=== PATIENT | male | born 1975 | race Caucasian/White ===

== ENCOUNTER 2019-08-13 22:14 | Emergency (ER) | payer OTHER, SELFPAY ==
--- NOTE | 2019-08-13 22:19 | ED_ITS ---
Entered by Lakisha Quintana, acting as scribe for HPI - Abdominal Pain General: Chief Complaint: Abdominal Pain Stated Complaint: abd pain Time Seen by Provider: 08/13/19 22:19 Source: patient Mode of arrival: ambulatory Limitations: no limitations History of Present Illness: HPI narrative: 44 yo m came to the er pov for abd pain. Onset was today. Pt states that he has epigastric pain that will not go away. Pt said that the pain started just prior to arrival. Pt said that he is now not in any pain at this time. Denies any hematochezia melena hematemesis cough emesis denies dysuria urgency or frequency. No chest pain or shortness of breath. 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) Pain Consistency: constant Location: Epigastric Severity: mild Quality: stabbing Radiation: none Migration to: no migration Exacerbating factors: nothing Relieving factors: nothing Associated Symptoms: Reports no associated symptoms and nausea; Denies belching, bloating, chills, coffee ground emesis, constipation, GI cramping, diarrhea, dysuria, fever(s), heartburn, hematochezia, hematemesis and vomiting Related Data: Patient : No Review of Systems General: Reports: other (negative unless marked ) Const: Denies: fever, chills, body aches, change in appetite, fatigue or malaise ENMT: Denies: throat pain, ear pain, nasal discharge or nasal congestion Card: Denies: chest pain, edema, shortness of breath on exertion or shortness of breath when lying down Resp: Denies: shortness of breath, productive cough or non-productive cough GI: Reports: abdominal pain and nausea; Denies: vomiting, vomiting blood, coffee grounds in vomit, heartburn/indigestion, diarrhea, constipation, bloating, cramping, belching, blood in stool or white/light colored stool : Denies: flank pain, painful urination, urinary frequency or urinary urgency Skin/Breast: Denies: rash or itching PFS ED PFSH: Medical History No pertinent past medical history Surgical History No pertinent past surgical history Social History Smoking and tobacco status: never smoked Alcohol intake: never Physical Exam Const: COMMON NORMALS: average body habitus, oriented x3 and alert GENERAL APPEARANCE: cooperative, comfortable, well kempt and well developed NUTRITIONAL APPEARANCE: obese ORIENTATION/CONSCIOUSNESS: Yes awake, Yes oriented to person and Yes oriented to place HENMT: COMMON NORMALS: normocephalic, head/scalp atraumatic, EAC's normal, TM's normal bilaterally, external nose normal, moist oral mucous membranes and oropharynx normal HEAD & SCALP: normocephalic and atraumatic NOSE: external nose normal EXTERNAL AUDITORY CANAL: EAC's normal TYMPANIC MEMBRANE: TM's normal bilaterally MOUTH: oral and palatal mucosa normal, lip normal and tongue normal THROAT: posterior oropharynx normal and tonsils normal Eye: COMMON NORMALS: PERRL, EOMs intact bilaterally, conjunctivae normal and no scleral icterus CONJUNCTIVA: Yes conjunctivae normal PUPIL: Yes PERRL Neck/C-Spine: COMMON NORMALS: full ROM, no lymphadenopathy, supple, no meningeal signs and thyroid normal THYROID: thyroid normal and asymmetrical Lymph: LYMPHATIC: no lymphadenopathy noted Resp: COMMON NORMALS: normal respiratory effort, no retractions, no use of accessory muscles and clear to auscultation bilaterally AUSCULTATION: clear to auscultation bilaterally Cardio: COMMON NORMALS: regular rate and regular rhythm RATE: regular rate RHYTHM: regular rhythm HEART SOUNDS: no murmurs GI: COMMON NORMALS: normal to inspection, nondistended, normoactive bowel sounds, soft to palpation and no hepatosplenomegaly PALPATION: Yes soft and Yes no hepatosplenomegaly : COMMON NORMALS: Yes no CVA tenderness BLADDER/KIDNEY EXAM: Yes no CVA tenderness Back/Pelvis: COMMON NORMALS: no CVA tenderness LUMBAR SPINE/LOWER BACK: Yes normal to inspection Extremity: COMMON NORMALS: no clubbing, cyanosis or edema, no calf tenderness and no pedal edema Neuro: COMMON NORMALS: oriented x3 SENSORIUM/ORIENTATION: Yes alert, Yes oriented to person and Yes oriented to place MENINGEAL SIGNS: Yes no meningeal signs Psych: APPEARANCE: Yes well kempt Skin: COMMON NORMALS: no rashes or lesions noted and skin turgor normal GENERAL SKIN EXAM: no rashes or lesions noted and turgor normal Course ED course: Reviewed findings with the patient. We will go ahead and discharge him home with Jorge L WOLFN follow-up with primary care doctor return if worsens. There is some elevation of his transaminases but no elevation of the T bili or alk phos. There is a little sludge read on his gallbladder ultrasound but I do not believe that the cause of his abdominal pain would continue the PPI she has persistent problems may need to look at getting further evaluation could an EGD and/or HIDA scan Vital Signs: Vital signs: Vital Signs Temperature 97.8 F 08/13/19 22:23 Pulse Rate 94 08/13/19 23:42 Respiratory Rate 16 08/13/19 23:42 Blood Pressure 138/89 08/13/19 23:42 Pulse Oximetry 98 08/13/19 23:42 MDM - Abdominal Pain Lab Data: Attestation: I reviewed the patient's lab results. Labs: Lab Results 08/13/19 08/13/19 08/13/19 Range/Units 22:36 22:36 22:40 WBC 8.8 (4.0-10.0) 10^3/ uL RBC 5.27 (4.1-5.3) 10^6/u L Hgb 15.7 (11.7-16.6) g/dL Hct 46.9 (42.0-52.0) % MCV 89.0 (80-94) fL MCH 29.8 (28.0-34.0) pg MCHC 33.5 (30.0-36.0) g/dL RDW 12.5 (12.1-15.1) % Plt Count 365 (130-400) 10^3/c mm MPV 9.0 (7.4-10.4) fL Neut % (Auto) 46.3 % Lymph % (Auto) 41.5 % [place] % (Auto) 7.8 % Eos % (Auto) 3.4 % Baso % (Auto) 0.7 % Neut # (Auto) 4.1 (1.8-7.7) 10^3/u L Lymph # (Auto) 3.6 (0.8-4.8) 10^3/u L [place] # (Auto) 0.7 (0.2-0.9) 10^3/u L Eos # (Auto) 0.3 (0.0-0.8) 10^3/u L Baso # (Auto) 0.1 (0.0-0.1) 10^3/u L Nucleated RBC % (a uto) 0 % Nucleated RBCs # 0.0 /100WBC Sodium 143 (136-145) mmol/L Potassium 3.9 (3.5-5.1) mmol/L Chloride 105 (98-107) mmol/L Carbon Dioxide 33 H (22-29) mmol/L Anion Gap 8.9 (5-19) BUN 11 (6-20) mg/dL Creatinine 0.9 (0.7-1.2) mg/dL GFR Calculation 91.7 (90-130) mL/min Glucose 123 H (65-115) mg/dL Calculated Osmolal ity 293 (285-295) mOsm/k g Calcium 9.5 (8.5-10.5) mg/dL Total Bilirubin 0.3 (0.15-1.2) mg/dL AST 68 H (0-40) U/L ALT 57 H (0-41) U/L Alkaline Phosphata se 109 (40-130) IU/L Total Protein 6.8 (6.6-8.7) g/dL Albumin 4.2 (3.5-5.2) g/dL Globulin 2.6 (1.3-4.6) g/dL Lipase 38 (13-60) U/L Urine Color Yellow (Yellow) Urine Appearance Clear (CLEAR) Urine pH 6 (5-7) Ur Specific Gravit y 1.020 (1.005-1.030) Urine Protein Neg (Negative) Urine Glucose (UA) Norm (Normal) Urine Ketones Negative (Negative) Urine Blood Neg (Negative) Urine Nitrate Negative (Negative) Urine Bilirubin Neg (NEGATIVE) Urine Urobilinogen Norm (Negative) mg/dL Ur Leukocyte Caren ase Negative (Negative) Imaging Data ^: US: Radiologist's impression: ABDOMINAL ULTRASOUND LIMITED REASON FOR VISIT: abd pain TECHNIQUE: Grayscale and Doppler ultrasound examination of the abdomen. FINDINGS: Pancreas: Are normal. Abdominal aorta and IVC: Within normal limits. Liver: Liver measures 13.5 cm in length. Normal hepatopedal portal circulation bladder wall 0.18 cm. Biliary sludge changes. Common bile duct measured 0.44 cm. Gallbladder: Gallbladder wall thickness measures 0.2 mm. No stones. Right kidney: Right kidney measures 12.4 cm x 6.2 cm x 4.4 cm. Right kidney cortex measures no hydronephrosis or stones. cm. US/US gall bladder [id number] IMPRESSION: Mild biliary sludge. Dictated By:Olman Velazco DO Discharge Plan Discharge Patient Disposition: Home, Self-Care Clinical Impression: Abdominal pain Condition: Stable Prescriptions: New Zofran 4 mg tablet 4 mg PO Q6H PRN (Reason: nausea and vomiting) Qty: 15 RF: 0 No Action pantoprazole [Protonix] 40 mg tablet,delayed release (DR/EC) 40 mg PO DAILY Qty: 10 RF: 0 metronidazole [Flagyl] 500 mg tablet 500 mg PO TID Qty: 30 RF: 0 dicyclomine 10 mg capsule 10 mg PO QID Qty: 40 RF: 0 Discharge Orders: Discharge Order (Routine); Ordered 08/13/19 Ordered By: Juventino Gallagher Referrals: Suellen Pulido DO [Primary Care Provider] - Discharge Diet: Full LIquid Discharge Activity: Increase activity as tolerated Patient Instructions: Cholecystitis (ED), Clear Liquid Diet (ED), Abdominal Pain (ED) Interventions: ED Discharge Assessment Last Done: 08/13/19 23:42 Discharge Date/Time: 08/13/19 23:44 Coding Level of Care Code ED 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
[2019-08-13 22:23] VITALS: BP 163/102; PULSE 77; RESP 18; TEMP 36.6; O2SAT 95; BMI 28.5
--- NOTE | 2019-08-13 22:26 | PC.NURSE ---
Patient states he started having abdominal pain tonight and took tums half and hour ago and now states he doesn't have any abdominal pain now.
[2019-08-13 22:28] VITALS: BP 155/99; PULSE 69; RESP 14; O2SAT 95
--- NOTE | 2019-08-13 22:31 | US_ITS ---
WS: [id number] ABDOMINAL ULTRASOUND LIMITED REASON FOR VISIT: abd pain TECHNIQUE: Grayscale and Doppler ultrasound examination of the abdomen. FINDINGS: Pancreas: Are normal. Abdominal aorta and IVC: Within normal limits. Liver: Liver measures 13.5 cm in length. Normal hepatopedal portal circulation bladder wall 0.18 cm. Biliary sludge changes. Common bile duct measured 0.44 cm. Gallbladder: Gallbladder wall thickness measures 0.2 mm. No stones. Right kidney: Right kidney measures 12.4 cm x 6.2 cm x 4.4 cm. Right kidney cortex measures no hydron ephrosis or stones. cm. US/US gall bladder [id number] IMPRESSION: Mild biliary sludge.
--- NOTE | 2019-08-13 22:36 | PC.NURSE ---
patient ambulated to bathroom with clean catch package and clean catch education given by nurse
[2019-08-13] MEDS: sodium chloride 0.9% 1,000 ML 999 ML IV (22:52)
[2019-08-13 22:58] LABS: Basophils # 0.1 10^3/uL (0.0-0.1); Basophils % 0.7 %; Eosinophils # 0.3 10^3/uL (0.0-0.8); Eosinophils % 3.4 %; Hematocrit 46.9 % (42.0-52.0); Hemoglobin 15.7 g/dL (11.7-16.6); Lymphocytes # 3.6 10^3/uL (0.8-4.8); Lymphocytes % 41.5 %; Mean Corpuscular HGB Conc 33.5 g/dL (30.0-36.0); Mean Corpuscular Hemoglobin 29.8 pg (28.0-34.0); Monocytes # 0.7 10^3/uL (0.2-0.9); Monocytes % 7.8 %; Neutrophils # 4.1 10^3/uL (1.8-7.7); Neutrophils % 46.3 %; Nucleated Red Blood Cells % 0 %; Platelet Count 365 10^3/cmm (130-400); Red Blood Count 5.27 10^6/uL (4.1-5.3); Red Cell Distribution Width 12.5 % (12.1-15.1); White Blood Count 8.8 10^3/uL (4.0-10.0)
[2019-08-13 23:05] VITALS: BP 130/87; O2SAT 96
[2019-08-13 23:12] LABS: Alanine Aminotransferase 57 U/L (0-41); Albumin Level 4.2 g/dL (3.5-5.2); Alkaline Phosphatase 109 IU/L (40-130); Anion Gap 8.9 (5-19); Blood Urea Nitrogen 11 mg/dL (6-20); Calcium 9.5 mg/dL (8.5-10.5); Carbon Dioxide 33 mmol/L (22-29); Chloride 105 mmol/L (98-107); Globulin 2.6 g/dL (1.3-4.6); Glomerular Filtration Rate 91.7 mL/min (90-130); Glucose 123 mg/dL (65-115); Lipase 38 U/L (13-60); Osmolality Calculated 293 mOsm/kg (285-295); Potassium 3.9 mmol/L (3.5-5.1); Sodium 143 mmol/L (136-145); Total Bilirubin 0.3 mg/dL (0.15-1.2); Total Protein 6.8 g/dL (6.6-8.7)
[2019-08-13 23:17] LABS: Add Urine Microscopic? NO
[2019-08-13 23:21] LABS: Bilirubin Urine Neg (NEGATIVE); Blood Urine Neg (Negative); Glucose Urine UA Norm (Normal); Ketones Urine Negative (Negative); Nitrate Urine Negative (Negative); Protein Urine Neg (Negative); Urine Appearance Clear (CLEAR); Urine Color Yellow (Yellow); pH Urine 6 (5-7)
[2019-08-13 23:22] LABS: Leukocyte Esterase Urine Negative (Negative); Urobilinogen Urine Norm (Negative)
[2019-08-13 23:24] LABS: Aspartate Amino Transferase 68 U/L (0-40)
[2019-08-13 23:40] VITALS: BP 148/94; PULSE 95; RESP 16; O2SAT 97
[2019-08-13 23:42] VITALS: BP 138/89; PULSE 94; RESP 16; O2SAT 98
== END 2019-08-13 23:44 | disposition home or self-care (01) ==
PROVIDERS: Emergency Provider Family Medicine; PCP Family Medicine
DX: R10.9 Unspecified abdominal pain (principal)
CPT/HCPCS: 12345; 76705; 80053; 81003; 83690; 85025; 96360; 99283; A9270; J7030

== ENCOUNTER → 2020-06-10 08:53 | Outpatient (BNVA) | payer OTHER, SELFPAY | PROVIDERS: PCP Family Medicine; Visit Provider Family Medicine | DX: I10 Essential (primary) hypertension (principal); Z12.5 Encounter for screening for malignant neoplasm of prostate; M25.521 Pain in right elbow; G89.29 Other chronic pain | CPT/HCPCS: 80053; 80061; 85025; G0103 ==

== ENCOUNTER 2020-07-24 16:22 | Outpatient (CLI) | payer OTHER, SELFPAY | END 2020-07-24 16:23 | disposition home or self-care (01) | LOC: SPT 16:22 | PROVIDERS: PCP Family Medicine; Visit Provider Orthopaedic Surgery | DX: Z46.89 Encounter for fitting and adjustment of other specified devices (principal); S86.811D Strain of other muscle(s) and tendon(s) at lower leg level, right leg, subsequent encounter; X58.XXXD Exposure to other specified factors, subsequent encounter | CPT/HCPCS: 97760; L4361 ==

== ENCOUNTER → 2020-09-20 15:28 | Outpatient (BNVA) | payer OTHER, SELFPAY | PROVIDERS: PCP Family Medicine; Visit Provider Surgery | DX: Z01.812 Encounter for preprocedural laboratory examination (principal); Z20.822 Contact with and (suspected) exposure to COVID-19 | CPT/HCPCS: 87635 ==

== ENCOUNTER 2020-09-23 05:55 | Day surgery (SDC) | payer OTHER, SELFPAY ==
[2020-09-20 17:03] VITALS: BMI 25.0
[2020-09-23 06:10] VITALS: BP 141/88; PULSE 70; RESP 18; O2SAT 100
--- NOTE | 2020-09-23 06:18 | W.PM.OPSUD ---
Surgery/Procedure H&P Update DATE OF PROCEDURE: September 23, 2020 DATE H&P PERFORMED: 09/19/20 H&P UPDATE INFORMATION: I have reviewed H&P completed within last 30 days, I have examined patient prior to procedure and No changes to prior documentation PREOP DIAGNOSIS: Left arm masses PRIMARY INDICATION FOR PROCEDURE: The same PLANNED PROCEDURE: Operation Date: 09/23/20 07:10 Proposed Procedures p EXCISION OF LEFT ARM MASS 12387 r22.3(Left) - Jaylen Cool MD
[2020-09-23] MEDS: sodium chloride 0.9% 1,000 ML 30 ML IV (06:30)
[2020-09-23] MEDS: acetaminophen 1,000 MG/100 ML PIGGYBACK 400 MG IV (06:31)
--- NOTE | 2020-09-23 06:34 | ANES.PREANE2 ---
Pre-Anesthetic Assessment Pre-Anesthetic Assessment: Height/Weight: Height 1.83 m Weight 83.915 kg Pulse Resp BP Pulse Ox 70 18 141/88 100 09/23/20 06:10 09/23/20 06:10 09/23/20 06:10 09/23/20 06:10 Preop Diagnosis: Left arm masses Proposed Procedure: Operation Date: 09/23/20 07:10 Proposed Procedures p EXCISION OF LEFT ARM MASS 79649 r22.3(Left) - Jaylen Cool MD Last intake: Intake Last Liquid Date 09/22/20 Last Liquid Time 19:00 Last Solid Date 09/22/20 Last Solid Time 19:00 Exam: Pre-Anes Outpt Exam: alert and oriented x 3 Airway: Submandibular: WNL MP: 2 Pulmonary: Pulmonary: None reported CV/HEM: CV/HEM: None reported Anesthetic Plan: ASA status: 2 Anesthesia: Anesthesia Evaluation and MAC Risk of > 500 ml blood loss (7ml/kg in children): No Meds/Allergies Current Medications: Current Medications Generic Name Dose Route Start Last Admin Trade Name Freq PRN Reason Stop Dose Admin Sodium Chloride 1,000 mls @ 30 ml s/hr 09/23/20 06:15 09/23/20 06:30 Sodium Chloride 0.9% IV 09/24/20 06:14 30 mls/hr .Q24H MINOR Administration PFSH Anesthesia PFSH: Medical History No pertinent past medical history Surgical History No pertinent past surgical history Family History Other No pertinent family history Social History Smoking and tobacco status: never smoked Data Anesthesia Cardiac Studies: No Data to Display
[2020-09-23] MEDS: lidocaine 2% INJ 20 mL (07:26)
--- NOTE | 2020-09-23 07:43 | P.OP_ITS ---
Operative Report Date of procedure: September 23, 2020 Pre-op Diagnosis: Left arm masses Post-op diagnosis: same Post-op Findings: Left upper arm mass 1 x 1.5 cm Left lower arm mass 2 x 2 centimeter Both masses show calcification Procedure Done: Excision of left arm masses Specimens removed/disposition: Left arm masses Surgeon: Jaylen Cool Enterostomal Therapy Nurse: Surgical willie Carrillo and Carol Peres Circulating nurse Lynette Anesthesia: MAC (JOEY Gates) Estimated blood loss (mL): 5 Condition: stable Disposition: same day Brief History: Left arm masses. Full H&P and informed consent per chart Procedure: After identifying the patient holding area, the left arm was marked before the procedure by myself, patient was then taken to the operative suite, was placed in supine position, IV propofol was infused by the anesthesia, prophylactic IV antibiotics were given per protocol, left arm was positioned appropriately and all pressure points were padded, prep and drape of the left upper extremity region was done under the usual sterile technique. Time-out was done verifying the patient's name/date of /planned procedure and destination after the procedure, all were in agreement. After palpation of the left arm masses, local anesthesia was infiltrated using lidocaine 2%.I did a longitudinal incision on top of the serg corresponding to the skin crease , dissection was carried after the skin incision all the way to the subcutaneous tissues, the mass was dissected from the surrounding healthy and normal looking subcutaneous tissues and delivered and passed with the circulating nurse measured 1 x 1.5 cm calcified mass, attention now was deviated to the left lower arm mass skin crease was incised using 15 blade knife and dissection was done freeing the mass from the surrounding normal subcutaneous tissues and measured about 2 x 2 cm that shows the same calcifications,hard in Consistency and both specimens passed to the circulating nurse for permanent Pathology. Thorough irrigation of the cavity was done and hemostasis, followed by deep dermal closure by 3-0 Vicryl, then 4-0 Monocryl for skin closure Lidocaine 2% was injected at the site of the incision that prior to the injection aspiration was done to make sure no injection is going into any vesse l, followed by surgical dry dressing and Kerlix. Patient tolerated the procedure well, count of instruments, needles and sponges were completed at the end of the procedure. And then patient was taken to the recovery area in stable condition. I Was present for the whole entire procedure
[2020-09-23 07:45] VITALS: BP 138/76; PULSE 81; RESP 18; TEMP 36.4; O2SAT 98
[2020-09-23 07:50] VITALS: BP 151/81; PULSE 79; RESP 18; O2SAT 98
--- NOTE | 2020-09-23 07:53 | SUR.PHASEI ---
pt awake alert talking to Dr Cool vss dressing d/i no distress noted pt asking for coke to sip on .
[2020-09-23 07:54] VITALS: BP 139/87; PULSE 73; RESP 18; TEMP 36.4; O2SAT 98
[2020-09-23 07:57] VITALS: BP 113/20; PULSE 74; RESP 18; TEMP 36.4; O2SAT 97
[2020-09-23 08:13] VITALS: BP 123/70; PULSE 73; RESP 18; TEMP 36.4; O2SAT 97
== END 2020-09-23 08:30 | disposition home or self-care (01) ==
PROVIDERS: PCP Family Medicine; Visit Provider Surgery
PROC: (CPT 11406; principal; 2020-09-23 07:00)
DX: D23.62 Other benign neoplasm of skin of left upper limb, including shoulder (principal)
CPT/HCPCS: 11406; 12032; 88307; 96365; J0690; J2250; J7030

== ENCOUNTER → 2023-03-09 09:14 | Outpatient (BNVA) | payer OTHER, SELFPAY | PROVIDERS: PCP Family Medicine; Visit Provider Family Medicine | DX: I10 Essential (primary) hypertension; Z12.5 Encounter for screening for malignant neoplasm of prostate | CPT/HCPCS: 80053; 80061; 82043; 85025; G0103 ==

== ENCOUNTER → 2023-08-25 08:02 | Outpatient (BNVA) | payer OTHER, SELFPAY | PROVIDERS: PCP Family Medicine; Visit Provider Family Medicine | DX: Z12.5 Encounter for screening for malignant neoplasm of prostate (principal); I10 Essential (primary) hypertension | CPT/HCPCS: 80053; 80061; 82043; 85025; G0103 ==